=== PATIENT | male | born 1995 | race Caucasian/White ===

== ENCOUNTER 2021-09-05 13:52 | Emergency (ER) | payer SELFPAY ==
[2021-09-05 14:32] VITALS: BP 143/91; PULSE 71; RESP 18; TEMP 36.9; O2SAT 99; BMI 31.9
--- NOTE | 2021-09-05 14:37 | DI.RAD.S_ITS ---
PROCEDURE: XR FOOT LT MIN 3V INDICATIONS: fall TECHNIQUE: 3 views of the foot were acquired. COMPARISON: [facility], CR, XR ANKLE LT MIN 3V, 09/05/2021, 14:40. FINDINGS: Bones: No fractures or dislocations. No suspicious bony lesions. Soft tissues: No suspicious soft tissue calcifications. IMPRESSION: 1. No fracture or dislocation. Dictated by: Danny Arechiga M.D. on 09/05/2021 at 14:26 Approved by: Danny Arechiga M.D. on 09/05/2021 at 14:27
--- NOTE | 2021-09-05 14:38 | DI.RAD.S_ITS ---
PROCEDURE: XR ANKLE LT MIN 3V INDICATIONS: fall TECHNIQUE: 3 views of the ankle were acquired. COMPARISON: [facility], CR, XR FOOT LT MIN 3V, 09/05/2021, 14:40. FINDINGS: Bones: No fractures or dislocations. Ankle mortise is normally aligned. No suspicious bony lesions. Soft tissues: There is a small tibiotalar joint effusion. Achilles tendon appears normal. IMPRESSION: 1. No fracture or dislocation. Dictated by: Danny Arechiga M.D. on 09/05/2021 at 14:25 Approved by: Danny Arechiga M.D. on 09/05/2021 at 14:26
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
[2021-09-05 16:37] VITALS: PULSE 80; RESP 18; TEMP 36.6; O2SAT 96
== END 2021-09-05 16:39 | disposition home or self-care (01) ==
PROVIDERS: Emergency Provider Emergency Medicine
DX: S93.402A Sprain of unspecified ligament of left ankle, initial encounter (principal); S96.912A Strain of unspecified muscle and tendon at ankle and foot level, left foot, initial encounter; F17.210 Nicotine dependence, cigarettes, uncomplicated; W18.40XA Slipping, tripping and stumbling without falling, unspecified, initial encounter; Y92.89 Other specified places as the place of occurrence of the external cause
CPT/HCPCS: 73610; 73630; 99281; 99283

== ENCOUNTER 2024-06-07 14:25 | Emergency (ER) | payer SELFPAY ==
[2024-06-07 14:30] VITALS: BP 136/77; PULSE 68; RESP 16; TEMP 36.6; O2SAT 99; BMI 33.4
--- NOTE | 2024-06-07 14:35 | DI.RAD.S_ITS ---
PROCEDURE: XR ANKLE LT MIN 3V INDICATIONS: fall from skateboard TECHNIQUE: 3 views of the ankle were acquired. COMPARISON: [facility], CR, XR ANKLE LT MIN 3V, 09/05/2021, 14:40. FINDINGS: Bones: No fractures or dislocations. Ankle mortise is normally aligned. No suspicious bony lesions. Degenerative /prior traumatic changes are present along the anterior talus. Soft tissues: No tibiotalar joint effusion. Achilles tendon appears normal. IMPRESSION: No visualized acute fracture or dislocation. However, if clinical concern and/or pain persist, short interval imaging followup in 7-10 days is recommended, as occult injury cannot be definitively excluded. Dictated by: Brigid Aleman M.D. on 06/07/2024 at 15:03 Approved by: Brigid Aleman M.D. on 06/07/2024 at 15:04
--- NOTE | 2024-06-07 14:35 | DI.RAD.S_ITS ---
PROCEDURE: XR FOOT LT MIN 3V INDICATIONS: fall from skateboard TECHNIQUE: 3 views of the foot were acquired. COMPARISON: [facility], , XR FOOT LT MIN 3V, 09/05/2021, 14:40. FINDINGS: Bones: Mildly displaced 5th metatarsal base fracture. Soft tissues: No tibiotalar joint effusion. Achilles tendon appears normal. IMPRESSION: Mildly displaced 5th metatarsal base fracture. Dictated by: Brigid Aleman M.D. on 06/07/2024 at 15:02 Approved by: Brigid Aleman M.D. on 06/07/2024 at 15:03
--- NOTE | 2024-06-07 14:57 | ED_ITS ---
HPI - Fall <JAMES Sauceda - Last Filed: 06/07/24 15:25> General Chief Complaint: Fall Stated Complaint: Fall, foot injury Time Seen by Provider: 06/07/24 14:41 History of Present Illness HPI Narrative: 28-year-old male, daily smoker, was brought to the emergency department with left ankle and foot pain after falling on his skateboard approximately 2 hours ago. Patient was not wearing a helmet, but does deny hitting his head or any loss of consciousness. Patient is not on any blood thinners. Fall was witnessed by friends who corroborate his story. Patient went to a friend's house, elevated his foot and placed ice on it prior to his bringing him to the emergency department. Related Data Allergies Allergy/AdvReac Type Severity Reaction Status Date / Time No Known Drug Allergies Allergy Verified 09/05/21 14:37 Review of Systems <JAMES Sauceda - Last Filed: 06/07/24 15:25> Review of Systems Narrative: Narrative: See HPI. GENERAL: Denies chills, fatigue, fever, sweats. HEENT: Denies sinus pain, ear pain, sore throat, difficulty swallowing, dizzi ness. RESPIRATORY: Denies dyspnea, cough, wheezing, sputum. CARDIOVASCULAR: Denies chest pain, palpitations, edema. GASTROINTESTINAL: Denies nausea, vomiting, abdominal pain, diarrhea, constipation. : Denies dysuria, frequency, incontinence, hematuria, urinary retention, flank pain. MSK: Denies weakness. Endorses left foot and ankle pain and swelling. SKIN: Denies rash, skin lesions, or pruritis. NEUROLOGIC: Denies weakness, dizziness, headache, numbness, confusion. PSYCHIATRIC: No concerning psychosocial issues. Patient History <JAMES Sauceda - Last Filed: 06/07/24 15:25> Social History Smoking Status: Current every day smoker Smoking Status: Current every day smoker tobacco type: cigarettes alcohol intake frequency: 3 or more drinks per day Alcohol type: beer and hard liquor Substance Use Type: marijuana Exam <JAMES Sauceda - Last Filed: 06/07/24 15:25> Narrative Exam Narrative: Exam Narrative: GENERAL: This is a well-nourished, well-developed patient, in no acute distress HEAD: Atraumatic. Normocephalic. RESPIRATORY: Respiratory rate and effort are normal. MSK: Moves all extremities. Normal range of motion, no clubbing or edema. Neurovascularly intact. NEURO: A&O x 3. SKIN: Warm, dry, no rashes or lesions noted. ANKLE: There is swelling, but no bruising or asymmetry. There is no tenderness to general palpation. Sensation grossly intact. There is tenderness over the lateral malleolus, but no tenderness over the medial malleolus, proximal tibia/fibula. The anterior mortise is non-tender. Flexion and extension is intact. Unable to test for stability or laxity due to pain. The contralateral ankle exam is unremarkable. FOOT: There is swelling along 4th-5th metatarsal, but no bruising or asymmetry. There is no tenderness to general palpation. Sensation grossly intact. There is tenderness over the 4/5 metatarsal, but no tenderness over the mid- foot, arch or other metatarsals. The ankle flexion and extension is intact. Toes range of motion intact. The contralateral foot exam is unremarkable. Initial Vital Signs Initial Vital Signs: Vital Signs Temperature 97.9 F 06/07/24 14:30 Pulse Rate 68 06/07/24 14:30 Respiratory Rate 16 06/07/24 14:30 Blood Pressure 136/77 06/07/24 14:30 Pulse Oximetry 99 06/07/24 14:30 Oxygen Delivery Method Room Air 06/07/24 14:30 Reviewed <Terry Sharpe MD - Last Filed: 06/07/24 21:39> Initial Vital Signs Initial Vital Signs: Vital Signs Temperature 97.9 F 06/07/24 14:30 Pulse Rate 68 06/07/24 14:30 Respiratory Rate 16 06/07/24 14:30 Blood Pressure 136/77 06/07/24 14:30 Pulse Oximetry 99 06/07/24 14:30 Oxygen Delivery Method Room Air 06/07/24 14:30 Course <JAMES Sauceda - Last Filed: 06/07/24 15:25> Orders Ordered: ED Orders 06/07/24 14:35 XR ankle LT min 3V Stat XR foot LT min 3V Stat Vital Signs Vital signs: Vital Signs - 8 hr 06/07/24 14:30 Temperature 97.9 F Pulse Rate 68 Respiratory Rate 16 Blood Pressure 136/77 Pulse Oximetry 99 Oxygen Delivery Method Room Air <Terry Sharpe MD - Last Filed: 06/07/24 21:39> Orders Ordered: ED Orders 06/07/24 14:35 XR ankle LT min 3V Stat XR foot LT min 3V Stat Vital Signs Vital signs: Vital Signs - 8 hr 06/07/24 14:30 Temperature 97.9 F Pulse Rate 68 Respiratory Rate 16 Blood Pressure 136/77 Pulse Oximetry 99 Oxygen Delivery Method Room Air MDM - Fall <JAMES Sauceda - Last Filed: 06/07/24 15:25> Differential Diagnosis Differential diagnosis: Likely other (Foot fracture, ankle fracture, ankle sprain) Imaging Data Extremity x-ray #1: Radiologist's Impression: [address] [address] XRay Report Signed Patient: Stephen Lutz MR#: [id number] : 1995 Acct:[id number] Age/Sex: 28 / M Date of Service: 06/07/24 Loc: ED Accession Number: [id number] Procedure: XR ankle LT min 3V Ordering Provider: Ge Zabala PROCEDURE: XR ANKLE LT MIN 3V INDICATIONS: fall from skateboard TECHNIQUE: 3 views of the ankle were acquired. COMPARISON: [facility], , XR ANKLE LT MIN 3V, 09/05/2021, 14:40. FINDINGS: Bones: No fractures or dislocations. Ankle mortise is normally aligned. No suspicious bony lesions. Degenerative /prior traumatic changes are present along the anterior talus. Soft tissues: No tibiotalar joint effusion. Achilles tendon appears normal. IMPRESSION: No visualized acute fracture or dislocation. However, if clinical concern and/or pain persist, short interval imaging followup in 7-10 days is recommended, as occult injury cannot be definitively excluded. Dictated by: Brigid Aleman M.D. on 06/07/2024 at 15:03 Approved by: Brigid Aleman M.D. on 06/07/2024 at 15:04 Extremity x-ray #2: Radiologist's Impression: [address] [address] XRay Report Signed Patient: Stephen Lutz MR#: [id number] : 1995 Acct:[id number] Age/Sex: 28 / M Date of Service: 06/07/24 Loc: ED Accession Number: [id number] Procedure: XR foot LT min 3V Ordering Provider: Ge Zabala PROCEDURE: XR FOOT LT MIN 3V INDICATIONS: fall from skateboard TECHNIQUE: 3 views of the foot were acquired. COMPARISON: [facility], CR, XR FOOT LT MIN 3V, 09/05/2021, 14:40. FINDINGS: Bones: Mildly displaced 5th metatarsal base fracture. Soft tissues: No tibiotalar joint effusion. Achilles tendon appears normal. IMPRESSION: Mildly displaced 5th metatarsal base fracture. Dictated by: Brigid Aleman M.D. on 06/07/2024 at 15:02 Approved by: Brigid Aleman M.D. on 06/07/2024 at 15:03 [facility] Narrative Medical decision making narrative: 28-year-old male with left foot and ankle injury. Assessment and HPI indicated the need for x-rays. X-ray results were negative for ankle and mildly displaced 5th metatarsal base fracture of foot. Treatment includes a firm soled shoe and weight-bearing as tolerated for 4-7 days. Patient declined the hard-soled shoe but already has crutches at home. Instructed patient to follow up with family doctor this next week in case repeat x-rays, orthopedic referral, etc. as necessary. Discussed supportive care measures such as Rest (modified activity), along with ice, compression wrap/splint-immobilize as directed and elevation above heart. Tylenol or Ibuprofen for discomfort. Patient verbalized understanding and was agreeable to course of action. Discharge Plan Departure Patient Disposition: Home Clinical Impression: Fracture of left foot Qualifiers: Encounter type: initial encounter Fracture type: closed Qualified Code(s): S92.902A - Unspecified fracture of left foot, initial encounter for closed fracture Instructions: DI for Foot Fracture Activity Restrictions/Additional Instructions: *You have been diagnosed with a left foot fracture. X-rays of your ankle were normal and x-ray of your left foot showed a fracture of the proximal 5th metatarsal. Treatment for this includes a hard-soled shoe and weight-bearing as tolerated. Patient already has crutches at home, but declined the hard-soled shoe. As we discussed, good supportive care measures include Rest (modified activity), along with ice, compression wrap/splint-immobilize as directed and elevation above heart. Tylenol or Ibuprofen for discomfort. Please follow-up with your family doctor this next week. For any worsening symptoms, please feel free to return to the emergency. *What to do: *Please continue to take your regular medications as directed. [ ] New medication prescriptions sent to your pharmacy: [ ] [ ] New medication written as a paper prescription [ x] No new medications given *Please follow up with your primary care provider in 2-3 days, call for an appointment. Let them know you were seen in the Emergency Department and that we ask that you be seen in follow up. We will electronically transmit a record of today's note if your PCP is in our system *If you do not have a primary care provider please contact the [facility] Resource line at [phone]. They will ask some questions about your medical history and help get you set up with a doctor in the community. ? Return to ER if you should have any new, worsening or concerning symptoms, such as worsening pain, severe headache, confusion, chest pain, difficulty breathing, fever greater than 101 F, shaking chills, persistent vomiting to the point that you cannot drink fluids, or other new or worsening symptoms. Referrals: Miscellaneous,[facility] [Primary Care Provider] - Stand Alone Forms: Patient Portal/API ED Sign-out <Terry Sharpe MD - Last Filed: 06/07/24 21:39> Cosign ED Attending Alejo Attestation: I was immediately available in the department for consultation. This documentation has been reviewed and I agree with assessment and plan. Supervised by Terry Sharpe MD
== END 2024-06-07 15:33 | disposition home or self-care (01) ==
PROVIDERS: Emergency Provider Registered Nurse
DX: S92.352A Displaced fracture of fifth metatarsal bone, left foot, initial encounter for closed fracture (principal); V00.131A Fall from skateboard, initial encounter; F17.200 Nicotine dependence, unspecified, uncomplicated
CPT/HCPCS: 73610; 73630; 99281; 99283